=== PATIENT | female | born 1995 | race African-American/Black ===

== ENCOUNTER 2016-12-08 16:59 | Outpatient (CLI) | payer OTHER | END 2016-12-08 18:30 | disposition home or self-care (01) | DX: O26.892 Other specified pregnancy related conditions, second trimester (principal); R10.32 Left lower quadrant pain; O99.342 Other mental disorders complicating pregnancy, second trimester; F41.9 Anxiety disorder, unspecified; O99.012 Anemia complicating pregnancy, second trimester; D64.9 Anemia, unspecified; Z3A.23 23 weeks gestation of pregnancy ==

== ENCOUNTER 2017-01-19 01:46 | Outpatient (CLI) | payer OTHER | END 2017-01-19 06:40 | disposition home or self-care (01) | DX: O47.02 False labor before 37 completed weeks of gestation, second trimester (principal); Z3A.29 29 weeks gestation of pregnancy ==

== ENCOUNTER 2017-01-19 07:12 | Outpatient (CLI) | payer OTHER | END 2017-01-19 07:13 | disposition home or self-care (01) | DX: O09.93 Supervision of high risk pregnancy, unspecified, third trimester (principal) ==

== ENCOUNTER 2017-01-22 10:17 | Outpatient (CLI) | payer OTHER | END 2017-01-22 12:20 | disposition home or self-care (01) | DX: O47.03 False labor before 37 completed weeks of gestation, third trimester (principal); Z3A.29 29 weeks gestation of pregnancy ==

== ENCOUNTER 2017-03-14 09:00 | Outpatient (CLI) | payer OTHER ==
[2017-03-14] MEDS ORDERED: HYDROcod/ACETAM 5/325 MG TABLET PO PRN (11:17)
== END 2017-03-14 13:00 | disposition home or self-care (01) ==
DX: O26.833 Pregnancy related renal disease, third trimester (principal); N28.89 Other specified disorders of kidney and ureter; N13.30 Unspecified hydronephrosis; Z3A.37 37 weeks gestation of pregnancy
CPT/HCPCS: 76775; 81003; 99213; A9270

== ENCOUNTER 2018-09-11 16:21 | Emergency (ER) | payer OTHER ==
[2018-09-11] MEDS ORDERED: DEXAMETHASONE 10 MG/ML VIAL IVP STA (17:22)
[2018-09-11] MEDS ORDERED: SODIUM CHLORIDE 0.9% 1,000 ML IV ONE (17:22)
--- NOTE | 2018-09-11 17:25 | ED Physician Documentation ---
History of Present Illness - Stated complaint Stated Complaint: BODY ACHES/FEVER - Chief complaint Chief Complaint: General - History obtained from History obtained from: Patient, Family - History of Present Illness Timing: How many days ago (3) - Additonal information Additional information: 22-year-old previously well female who has had a 3-day history of fever aches nausea vomiting and diarrhea. She has a young daughter who attends daycare who was sick with similar symptoms for the past 2 weeks. The patient notes that she has not been able to keep much in way of fluids down and feels dehydrated. Review of Systems Constitutional: reports: Fever, Chills, Myalgias, Fatigue, Sweats Eyes: denies: Decreased vision Ears: denies: Ear pain Nose: reports: Rhinorrhea / runny nose, Congestion Throat: reports: Sore throat Cardiac: denies: Chest pain / pressure, Palpitations Respiratory: denies: Dyspnea, Cough GI: reports: Nausea, Vomiting, Diarrhea : denies: Dysuria, Frequency Skin: denies: Rash Musculoskeletal: denies: Neck pain, Back pain, Extremity pain Neurologic: reports: Generalized weakness. denies: Focal weakness, Numbness PD PAST MEDICAL HISTORY - Past Medical History Past Medical History: Yes Cardiovascular: Murmur Respiratory: Asthma Endocrine/Autoimmune: None GI: None SUBSTITUTE NURSE: Miscarriage(s) : None HEENT: None Psych: None Musculoskeletal: Scoliosis Derm: None - Past Surgical History Past Surgical History: Yes /SUBSTITUTE NURSE: Dilation and currettage - Present Medications Home Medications: Ambulatory Orders Medication Instructions Recorded Confirmed Azithromycin [Zithromax] 250 mg PO DAILY #6 tablet 09/11/18 Ondansetron Odt [Zofran] 4 mg TL Q6H PRN #10 tablet 09/11/18 RX: Albuterol Sulf [Ventolin Hfa 1 - 2 puffs INH Q4HR PRN #1 inhaler 09/11/18 Inhaler] - Allergies Allergies/Adverse Reactions: Allergies Allergy/AdvReac Type Severity Reaction Status Date / Time Penicillins Allergy Hives Verified 09/11/18 16:26 - Social History Does the pt smoke?: No Smoking Status: Never smoker Does the pt drink ETOH?: Yes ETOH Use: Liquor Does the pt have substance abuse?: No - Immunizations Immunizations are current?: Yes - POLST Patient has POLST: No PD ED PE NORMAL - Vitals Vital signs reviewed: Yes (tachy ) - General General: Alert and oriented X 3, No acute distress, Well developed/nourished - HEENT HEENT: Atraumatic, PERRL, EOMI, Other (inflamation and fluid behind the TM on the right with the left being clear ) - Neck Neck: Supple, no meningeal sign, No bony TTP - Cardiac Cardiac: No murmur, Other (tachy to 120 sitting up ) - Respiratory Respiratory: No respiratory distress, Other (poor air movement ) - Abdomen Abdomen: Soft, Other (epigastric tenderness to palpation ) - Back Back: No CVA TTP, No spinal TTP - Derm Derm: Normal color, Warm and dry, No rash - Extremities Extremities: No deformity, No edema - Neuro Neuro: Alert and oriented X 3, health advocate 2-12 intact, No motor deficit, No sensory deficit, Normal speech Eye Opening: Spontaneous Motor: Obeys Commands Verbal: Oriented GCS Score: 15 - Psych Psych: Normal mood, Normal affect Results - Vitals Vitals: Oxygen O2 Source Room air - Labs Labs: Laboratory Tests 09/11/18 09/11/18 09/11/18 17:30 17:30 19:06 WBC 4.5 L RBC 4.87 Hgb 13.0 Hct 39.4 MCV 80.9 L MCH 26.6 L MCHC 32.9 RDW 13.8 Plt Count 183 MPV 8.5 Neut # (Auto) 3.7 Lymph # (Auto) 0.5 L [place] # (Auto) 0.3 Eos # (Auto) 0.0 Baso # (Auto) 0.0 Absolute Nucleated RBC 0.00 Nucleated RBC % 0.0 Sodium 134 L Potassium 3.3 L Chloride 104 Carbon Dioxide 23 Anion Gap 7.0 BUN 9 Creatinine 0.7 Estimated GFR (MDRD) 128 Glucose 103 H Calcium 8.7 Total Bilirubin 0.5 AST 16 ALT 13 Alkaline Phosphatase 39 L Total Protein 7.2 Albumin 3.8 Globulin 3.4 Albumin/Globulin Ratio 1.1 Lipase 23 Urine Color YELLOW Urine Clarity CLEAR Urine pH 5.5 Ur Specific [place] >=1.030 H Urine Protein NEGATIVE Urine Glucose (UA) NEGATIVE Urine Ketones NEGATIVE Urine Occult Blood NEGATIVE Urine Nitrite NEGATIVE Urine Bilirubin NEGATIVE Urine Urobilinogen 0.2 (NORMAL) Ur Leukocyte Esterase NEGATIVE Ur Microscopic Review NOT INDICATED Urine Culture Comments NOT INDICATED Urine HCG, Qual NEGATIVE - Rads (name of study) 2 veiw chest Radiology: Prelim report reviewed (Impression: No acute radiographic pulmonary abnormalities.), EMP read indepedently, See rad report Procedures - IVC sono (time) 1720 Bedside IVC sono: IVC measures (cm) (1.21), IVC collapsed c insp (cm) (complete), Dehydration (est 1 liter deficit) PD MEDICAL DECISION MAKING - ED course Complexity details: reviewed results, re-evaluated patient, considered differential, d/w patient, d/w family ED course: 22 y/o female with fever, aches, vomiting and diarrhea for 3 days is found to be dehydrated on arrival to the ED and she has ROM on exam. She is administered IV saline and decadron. Departure - Departure Disposition: 01 Home, Self Care Clinical Impression: Dehydration, Gastroenteritis, Otitis media Condition: Stable Instructions: ED Dehydration, ED Otitis Media Acute Adult, ED Gastroenteritis Viral Follow-Up: SAAD BRADFORD [Primary Care Provider] - Prescriptions: RX: Albuterol Sulf [Ventolin Hfa Inhaler] 1 - 2 puffs INH Q4HR PRN #1 inhaler PRN Reason: Shortness Of Air/Wheezing Azithromycin [Zithromax] 250 mg PO DAILY #6 tablet Ondansetron Odt [Zofran] 4 mg TL Q6H PRN #10 tablet PRN Reason: Nausea / Vomiting Comments: Please return to the ED for worsening symptoms or any concerns Discharge Date/Time: 09/11/18 20:08
[2018-09-11 17:44] LABS: BASOPHILS % (AUTO) 0.5 %; EOSINOPHILS % (AUTO) 0.1 %; LYMPHOCYTES # (AUTO) 0.5 10^3/uL (1.5-3.5); LYMPHOCYTES % (AUTO) 11.1 %; MEAN CORPUSCULAR HEMOGLOBIN 26.6 pg (27.0-31.0); MEAN CORPUSCULAR HGB CONC 32.9 g/dL (32.0-36.0); MEAN CORPUSCULAR VOLUME 80.9 fL (81.0-99.0); MEAN PLATELET VOLUME 8.5 fL (7.9-10.8); MONOCYTES # (AUTO) 0.3 10^3/uL (0.0-1.0); MONOCYTES % (AUTO) 6.2 %; NEUTROPHILS # (AUTO) 3.7 10^3/uL (1.5-6.6); NEUTROPHILS % (AUTO) 82.1 %; PLT - PLATELET COUNT 183 10^3/uL (130-450); RED BLOOD COUNT 4.87 10^6/uL (4.20-5.40); RED CELL DISTRIBUTION WIDTH 13.8 % (12.0-15.0); WHITE BLOOD COUNT 4.5 x10^3/uL (4.8-10.8)
[2018-09-11 17:59] LABS: ALBUMIN 3.8 g/dL (3.2-5.5); ALBUMIN/GLOBULIN RATIO 1.1 (1.0-2.2); BILIRUBIN,TOTAL 0.5 mg/dL (0.2-1.0); CALCIUM 8.7 mg/dL (8.5-10.3); CREATININE 0.7 mg/dL (0.4-1.0); TOTAL PROTEIN 7.2 g/dL (6.7-8.2)
--- NOTE | 2018-09-11 18:02 | XRAY Report ---
Reason: fever decreased air movement Procedure Date: 09/11/2018 Accession Number: [id number] / [id number] Procedure: XR - Chest 2 View X-Ray CPT Code: 90294 FULL RESULT: EXAM: CHEST RADIOGRAPHY EXAM DATE: 09/11/2018 05:47 PM. CLINICAL HISTORY: Fever decreased air movement. COMPARISON: None. TECHNIQUE: 2 views. FINDINGS: Lungs/Pleura: No dense consolidation. No large effusion or pneumothorax. No pulmonary edema. Mediastinum: Heart and mediastinal contours are unremarkable. Other: None. IMPRESSION: No acute radiographic pulmonary abnormalities. RADIA
[2018-09-11] MEDS ORDERED: POTASSIUM BICARB 25 MEQ TABLET PO STA (18:14)
[2018-09-11 19:17] LABS: BILIRUBIN,URINE NEGATIVE (NEGATIVE); GLUCOSE, URINE (UA) NEGATIVE (NEGATIVE); KETONES,URINE (UA) NEGATIVE (NEGATIVE); LEUKOCYTE ESTERASE, URINE NEGATIVE (NEGATIVE); NITRITE,URINE NEGATIVE (NEGATIVE); OCCULT BLOOD,URINE NEGATIVE (NEGATIVE); PH,URINE 5.5 PH (5.0-7.5); PROTEIN,URINE NEGATIVE (NEGATIVE); UROBILINOGEN,URINE 0.2 (NORMAL) E.U./dL (NORMAL)
[2018-09-11 19:27] LABS: CLARITY,URINE CLEAR (CLEAR); HCG UR QUAL NEGATIVE
--- NOTE | 2018-09-11 19:31 | ED Physician Documentation ---
ED Addendum - Addendum Addendum: The case was discussed Was signed out to me by the off going emergency physician, I was asked to follow-up on the results of the urinalysis and discharge the patient home. On reevaluation the patient is resting comfortably and appear to be in no significant distress. I reviewed the labs and there is no findings that would necessitate admission to the hospital Or urgent transfer. The prior physician felt that the patient had an Acute otitis media the patient was prescribed antibiotics.
[2018-09-11 19:39] VITALS: BP 117/76
== END 2018-09-11 20:08 | disposition home or self-care (01) ==
LOC: ED 16:21
DX: E86.0 Dehydration (principal); K52.9 Noninfective gastroenteritis and colitis, unspecified; H66.91 Otitis media, unspecified, right ear
CPT/HCPCS: 36415; 71046; 80053; 81003; 81025; 83690; 85025; 96361; 96374; 99283; A9270; 81001; 87086

== ENCOUNTER 2018-10-14 06:46 | Emergency (ER) | payer OTHER ==
[2018-10-14 06:54] VITALS: BP 128/66
--- NOTE | 2018-10-14 07:24 | ED Physician Documentation ---
PD HPI FEMALE - Stated complaint Stated Complaint: CRAMPING/?? - Chief complaint Chief Complaint: Abd Pain - History obtained from History obtained from: Patient - History of Present Illness Timing - onset: Yesterday Timing - duration: Days (1) Timing - details: Abrupt onset, Still present Associated symptoms: Pelvic pain (bladder and LLQ area. with some cramping pains and vaginal bleeding, has used 1-2 pads er hour initially, tapered today.). No: Fever, Abdominal pain Contributing factors: (she is 1 weeks late on her period and is concerned she might be .). No: control, Exposed to STD OB-[employer] History: G (4), P (1), Miscarriage(s) (3) Similar symptoms before: Diagnosis (with prior miscarriages) Recently seen: Not recently seen Review of Systems Constitutional: denies: Fever, Chills Nose: denies: Rhinorrhea / runny nose, Congestion Throat: denies: Sore throat Respiratory: denies: Cough GI: reports: Abdominal Pain. denies: Nausea, Vomiting, Diarrhea : reports: Vaginal bleeding, Missed period (1 week late). 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 HEENT: None Psych: None Musculoskeletal: Scoliosis Derm: None - Past Surgical History Past Surgical History: Yes /FIELD [employer] HELPER: Dilation and currettage - Present Medications Home Medications: Ambulatory Orders Medication Instructions Recorded Confirmed Albuterol Sulf [Ventolin Hfa 1 - 2 puffs INH Q4HR PRN #1 inhaler 09/11/18 Inhaler] Naproxen 375 mg PO BID #20 tablet 10/14/18 Ondansetron Odt [Zofran] 4 mg TL Q6H PRN #10 tablet 10/14/18 - Allergies Allergies/Adverse Reactions: Allergies Allergy/AdvReac Type Severity Reaction Status Date / Time Penicillins Allergy Hives Verified 10/14/18 06:54 - Social History Does the pt smoke?: No Smoking Status: Never smoker Does the pt drink ETOH?: Yes Does the pt have substance abuse?: No - Immunizations Immunizations are current?: Yes - POLST Patient has POLST: No PD ED PE NORMAL - Vitals Vital signs reviewed: Yes - General General: Alert and oriented X 3, No acute distress, Well developed/nourished - HEENT HEENT: Pharynx benign - Neck Neck: Supple, no meningeal sign, No adenopathy - Cardiac Cardiac: RRR, No murmur - Respiratory Respiratory: Clear bilaterally - Abdomen Abdomen: Normal bowel sounds, Soft, Non distended, No organomegaly, Other (mildly tender suprapubic and LLQ area. No guarding nor percussion tenderness. ) - Back Back: No CVA TTP - Derm Derm: Normal color, Warm and dry - Extremities Extremities: No deformity, No tenderness to palpate - Neuro Neuro: Alert and oriented X 3, No motor deficit, Normal speech Results - Vitals Vitals: Vital Signs - 24 hr 10/14/18 06:50 Temperature 37.0 C Heart Rate 81 Respiratory 16 Rate Blood Pressure 128/66 O2 Saturation 100 Oxygen O2 Source Room air - Labs Labs: Laboratory Tests 10/14/18 10/14/18 10/14/18 07:20 07:55 07:55 WBC 7.0 RBC 4.73 Hgb 12.6 Hct 38.6 MCV 81.7 MCH 26.6 L MCHC 32.5 RDW 14.3 Plt Count 262 MPV 7.6 L Neut # (Auto) 4.8 Lymph # (Auto) 1.6 [place] # (Auto) 0.5 Eos # (Auto) 0.1 Baso # (Auto) 0.1 Absolute Nucleated RBC 0.00 Nucleated RBC % 0.0 HCG, Quant 550.86 Urine Color YELLOW Urine Clarity CLEAR Urine pH 5.5 Ur Specific [place] >=1.030 H Urine Protein NEGATIVE Urine Glucose (UA) NEGATIVE Urine Ketones NEGATIVE Urine Occult Blood NEGATIVE Urine Nitrite NEGATIVE Urine Bilirubin NEGATIVE Urine Urobilinogen 0.2 (NORMAL) Ur Leukocyte Esterase NEGATIVE Urine RBC 0-5 Urine WBC 0-3 Ur Squamous Epith Cells FEW Squamous Urine Bacteria Few Urine Mucus Few Strands Urine Sperm PRESENT Urine Culture Comments NOT INDICATED Urine HCG, Qual POSITIVE Blood Type 10/14/18 07:55 WBC RBC Hgb Hct MCV MCH MCHC RDW Plt Count MPV Neut # (Auto) Lymph # (Auto) [place] # (Auto) Eos # (Auto) Baso # (Auto) Absolute Nucleated RBC Nucleated RBC % HCG, Quant Urine Color Urine Clarity Urine pH Ur Specific [place] Urine Protein Urine Glucose (UA) Urine Ketones Urine Occult Blood Urine Nitrite Urine Bilirubin Urine Urobilinogen Ur Leukocyte Esterase Urine RBC Urine WBC Ur Squamous Epith Cells Urine Bacteria Urine Mucus Urine Sperm Urine Culture Comments Urine HCG, Qual Blood Type A POSITIVE - Rads (name of study) pelvic U/S Radiology: Prelim report reviewed, Discussed with rads (no IUP and normal uterus. Left ovarian cystic lesions c/w corpeus luteum cyst. Suggests repeat quant HCG and U/S) PD MEDICAL DECISION MAKING - ED course Complexity details: reviewed results (Ultrasound shows no visible intrauterine . There is a cyst on the left ovary is luteum cyst according to the radiologist verbally. Her quantitative hCG is low enough that the regnancy may not be discernible. At tried to call with [facility] [employer] but they did not return call. I talked with Dr. Neville our [employer] on-call and reviewed the findings. He said she would need to have a repeat quantitative level in 2-3 days and to be seen in the office for follow-up.. She should call the [facility] clinic tomorrow or later today for an appointment in a few days.), considered differential (concern for miscarriage versus ectopic versus early and other cause such as cyst. ), d/w patient Departure - Departure Disposition: 01 Home, Self Care Clinical Impression: Early stage of , Vaginal bleeding in Ovarian cyst Qualifiers: Laterality: left Qualified Code(s): N83.202 - Unspecified ovarian cyst, left side Condition: Stable Record reviewed to determine appropriate education?: Yes Instructions: ED Abdominal Pain Rule Out Ectopic Follow-Up: [facility] [Provider Group] Oscar Neville MD [Provider Admit Priv/Credential] - Prescriptions: Naproxen 375 mg PO BID #20 tablet Ondansetron Odt [Zofran] 4 mg TL Q6H PRN #10 tablet PRN Reason: Nausea / Vomiting Comments: The ultrasound did not show any intrauterine . This may have the possibilities of too early to be visible on ultrasound or having miscarried or tubal . You should recheck with [employer] in 2-3 days. They will want to do a repeat blood test for your hCG. Today was 550. Whether he goes up or down would distinguish whether there is still a and if so may need a repeat ultrasound to verify location. Return to the ER sooner if increasing pain or bleeding. You can use ondansetron if needed for nausea. Naproxen can be used for pain and is okay in early . He can use Tylenol if needed for pain. [place] [employer] [facility] [place] community. Your primary care could also order the blood test if needed. Discharge Date/Time: 10/14/18 12:35
[2018-10-14 07:33] LABS: BILIRUBIN,URINE NEGATIVE (NEGATIVE); GLUCOSE, URINE (UA) NEGATIVE (NEGATIVE); KETONES,URINE (UA) NEGATIVE (NEGATIVE); LEUKOCYTE ESTERASE, URINE NEGATIVE (NEGATIVE); NITRITE,URINE NEGATIVE (NEGATIVE); OCCULT BLOOD,URINE NEGATIVE (NEGATIVE); PH,URINE 5.5 PH (5.0-7.5); PROTEIN,URINE NEGATIVE (NEGATIVE); UROBILINOGEN,URINE 0.2 (NORMAL) E.U./dL (NORMAL)
[2018-10-14 07:36] LABS: CLARITY,URINE CLEAR (CLEAR); HCG UR QUAL POSITIVE
[2018-10-14 07:56] LABS: BACTERIA,URINE Few /HPF (None Seen); MUCUS,URINE Few Strands; RBC,URINE 0-5 /HPF (0-5); SPERM,URINE PRESENT; SQUAMOUS EPITHELIAL CELL,UR FEW Squamous (<= Few)
[2018-10-14 08:05] LABS: BASOPHILS # (AUTO) 0.1 10^3/uL (0.0-0.1); BASOPHILS % (AUTO) 0.7 %; EOSINOPHILS # (AUTO) 0.1 10^3/uL (0.0-0.7); EOSINOPHILS % (AUTO) 1.2 %; HGB - HEMOGLOBIN 12.6 g/dL (12.0-16.0); LYMPHOCYTES # (AUTO) 1.6 10^3/uL (1.5-3.5); LYMPHOCYTES % (AUTO) 22.8 %; MEAN CORPUSCULAR HEMOGLOBIN 26.6 pg (27.0-31.0); MEAN CORPUSCULAR HGB CONC 32.5 g/dL (32.0-36.0); MEAN CORPUSCULAR VOLUME 81.7 fL (81.0-99.0); MEAN PLATELET VOLUME 7.6 fL (7.9-10.8); MONOCYTES # (AUTO) 0.5 10^3/uL (0.0-1.0); MONOCYTES % (AUTO) 6.8 %; NEUTROPHILS # (AUTO) 4.8 10^3/uL (1.5-6.6); NEUTROPHILS % (AUTO) 68.5 %; PLT - PLATELET COUNT 262 10^3/uL (130-450); RED BLOOD COUNT 4.73 10^6/uL (4.20-5.40); RED CELL DISTRIBUTION WIDTH 14.3 % (12.0-15.0)
--- NOTE | 2018-10-14 10:39 | Ultrasound Report ---
Reason: early and cramps/bleeding Procedure Date: 10/14/2018 Accession Number: [id number] / [id number] Procedure: US - OB First Trimester CPT Code: FULL RESULT: EXAM: FIRST TRIMESTER OBSTETRIC ULTRASOUND (Less than 11 weeks) EXAM DATE: 10/14/2018 10:04 AM. CLINICAL HISTORY: Early and cramps/bleeding. LMP: 09/13/2018. Beta hCG 550.9. COMPARISONS: OB FIRST TRIMESTER 08/08/2016 10:15 PM. TECHNIQUE: Transabdominal and transvaginal ultrasound examination with static image documentation. CLINICAL DATES: EGA 4 weeks 3 days with DELPHINE 06/20/2019 based on last menstrual period. ASSESSMENT: Gestational Sac: Single intrauterine. An intrauterine gestational sac is not identified. No cardiac activity is identified. Early placenta: Not applicable at this gestational age. Other: No perigestational fluid collection demonstrated. MATERNAL STRUCTURES: Uterus: Retroverted. The endometrium is homogenously echogenic and thick in keeping with a hormonally supplied uterus, 13 mm. Cervix: Closed. Right Ovary/Adnexa: The ovary measures 2.8 x 1.3 x 1.5 cm, volume 2.9 cc. Unremarkable. Left Ovary/Adnexa: The ovary measures 3.4 x 2.4 x 2.0 cm, volume 8.5 cc. A cystic structure measuring 2.2 x 1.9 x 1.9 cm is most compatible with a corpus luteum. Free Fluid: There is a small amount of free pelvic fluid. Other: No definite adnexal findings to suggest ectopic gestation are identified at this time. IMPRESSION: Thickened endometrium with no definite intrauterine gestation identified. In the setting of clinical vaginal bleeding and cramping, this is concerning for the possibility of spontaneous in progress. Recommend close clinical follow-up and correlation with serial beta hCG and follow-up ultrasound if indicated. RADIA CRITICAL RESULT: The findings were discussed with Dr. Orozco on 10/14/2018 at 10:20 AM.
== END 2018-10-14 12:35 | disposition home or self-care (01) ==
LOC: ED 06:46
DX: O20.9 Hemorrhage in early pregnancy, unspecified (principal); O34.81 Maternal care for other abnormalities of pelvic organs, first trimester; N83.202 Unspecified ovarian cyst, left side; Z3A.01 Less than 8 weeks gestation of pregnancy
CPT/HCPCS: 76801; 76817; 81001; 81025; 84702; 85025; 86900; 86901; 87086; 99283

== ENCOUNTER 2019-03-17 19:28 | Outpatient (CLI) | payer OTHER ==
[2019-03-17] MEDS ORDERED: LACTATED RINGERS 1,000 ML IV ONE (20:49)
[2019-03-17] MEDS ORDERED: SODIUM CHLORIDE FLUSH 0.9% 10 ML SYRINGE ONE (21:05)
[2019-03-17 21:30] LABS: BILIRUBIN,URINE NEGATIVE (NEGATIVE); GLUCOSE, URINE (UA) NEGATIVE (NEGATIVE); KETONES,URINE (UA) NEGATIVE (NEGATIVE); LEUKOCYTE ESTERASE, URINE NEGATIVE (NEGATIVE); NITRITE,URINE NEGATIVE (NEGATIVE); OCCULT BLOOD,URINE NEGATIVE (NEGATIVE); PROTEIN,URINE NEGATIVE (NEGATIVE); UROBILINOGEN,URINE 1 (NORMAL) E.U./dL (NORMAL)
[2019-03-17 21:33] LABS: CLARITY,URINE CLEAR (CLEAR)
--- NOTE | 2019-03-17 22:28 | Ultrasound Report ---
Reason: 26 weeks , lower abd. pain Procedure Date: 03/17/2019 Accession Number: [id number] / [id number] Procedure: US - OB Transvaginal CPT Code: FULL RESULT: EXAM: LIMITED OBSTETRICAL ULTRASOUND EXAM DATE: 03/17/2019 09:48 PM. CLINICAL HISTORY: 26 weeks , lower abd. pain. COMPARISON: OB TRANSVAGINAL 01/19/2017 7:38 AM. TECHNIQUE: Real-time sonographic evaluation of the fetus performed by the electrical assistant. Multiple commercial sales representative static images were saved for review. Additional transvaginal imaging to more accurately evaluate cervical length/placental position/etc. DATING: Established EGA 26 weeks 0 days with DELPHINE 06/23/2019. GENERAL EVALUATION Burger . Cardiac activity: 154 bpm. movement: Visualized. Presentation: Cephalic. MATERNAL STRUCTURES The cervix measures 3 cm transvaginally, and is closed. IMPRESSION: 1. Burger live intrauterine with gestational age 26 weeks 0 days based on established DELPHINE. 2. 3 cm cervix, which is closed. RADIA
[2019-03-17 23:06] VITALS: BP 118/71
== END 2019-03-17 22:51 | disposition home or self-care (01) ==
LOC: WFO 19:28 → FBP 19:32 → WFO 22:51
PROVIDERS: ATTEND Obstetrics & Gynecology
DX: O60.02 Preterm labor without delivery, second trimester (principal); Z3A.25 25 weeks gestation of pregnancy
CPT/HCPCS: 76817; 81001; 81003; 82731; 87210; 87491; 87591; 99214

== ENCOUNTER 2019-04-12 19:42 | Outpatient (CLI) | payer OTHER ==
[2019-04-12] MEDS ORDERED: ACETAMINOPHEN 500 MG TABLET PO PRN (20:34)
[2019-04-12 21:14] LABS: BASOPHILS % (AUTO) 0.5 %; EOSINOPHILS # (AUTO) 0.1 10^3/uL (0.0-0.7); EOSINOPHILS % (AUTO) 1.6 %; HGB - HEMOGLOBIN 10.1 g/dL (12.0-16.0); LYMPHOCYTES # (AUTO) 1.7 10^3/uL (1.5-3.5); LYMPHOCYTES % (AUTO) 20.8 %; MEAN CORPUSCULAR HEMOGLOBIN 24.4 pg (27.0-31.0); MEAN CORPUSCULAR HGB CONC 31.2 g/dL (32.0-36.0); MEAN CORPUSCULAR VOLUME 78.1 fL (81.0-99.0); MEAN PLATELET VOLUME 7.9 fL (7.9-10.8); MONOCYTES # (AUTO) 0.6 10^3/uL (0.0-1.0); MONOCYTES % (AUTO) 7.6 %; NEUTROPHILS # (AUTO) 5.6 10^3/uL (1.5-6.6); NEUTROPHILS % (AUTO) 69.5 %; PLT - PLATELET COUNT 193 10^3/uL (130-450); RED BLOOD COUNT 4.13 10^6/uL (4.20-5.40); RED CELL DISTRIBUTION WIDTH 15.9 % (12.0-15.0); WHITE BLOOD COUNT 8.1 x10^3/uL (4.8-10.8)
[2019-04-12 23:06] VITALS: BP 121/69
--- NOTE | 2019-04-16 09:50 | PROVIDER PROGRESS NOTE ---
- HPI Chief Complaint: Fall Current : Current 2 Para 1 Vital Signs Temperature 97.3 F L 04/12/19 19:49 Heart Rate 92 04/12/19 19:49 Respiratory Rate 16 04/12/19 19:49 Blood Pressure 133/70 H 04/12/19 19:49 O2 Saturation 100 04/12/19 19:49 Temperature 97.7 F 04/12/19 23:05 Heart Rate 70 04/12/19 23:05 Respiratory Rate 20 04/12/19 23:05 Blood Pressure 121/69 04/12/19 23:05 O2 Saturation 100 04/12/19 23:05 - Exam Abd soft, nt/nd. No bruising. - Procedures OB Procedure Performed: NST Diagnosis/Indication for NST: Other (trauma/fall) Findings: Category 1; toco neg - Plan Plan: S: slipped out of the bathtub, fell forward, hit her bump on the counter edge and was able to brace with her hand at the same time to take some of the force. Since then has had some cramping. No VB. No LOF. Is feeling FM. O: AVSS Alert, NAD Abd soft, nt/nd NST category 1 [place] rare UC Rh + A/P: at 29w6d with abd trauma, low-velocity mechanism of injury, no bruising, Rh +. Pt was observed for 4h post event with continuous monitoring. By the end of this time she had minimal abd pain. One dose of nifedipine was given to reduce her sensation of UC. Dischrged home with abruption and PTL precautions. Follow up at regularly scheduled OB visit.
== END 2019-04-12 23:15 | disposition home or self-care (01) ==
LOC: WFO 19:42 → FBP 19:44 → WFO 23:15
PROVIDERS: ATTEND Obstetrics & Gynecology
DX: O9A.213 Injury, poisoning and certain other consequences of external causes complicating pregnancy, third trimester (principal); S39.91XA Unspecified injury of abdomen, initial encounter; Z3A.29 29 weeks gestation of pregnancy; W01.198A Fall on same level from slipping, tripping and stumbling with subsequent striking against other object, initial encounter; Y93.E1 Activity, personal bathing and showering; Y92.002 Bathroom of unspecified non-institutional (private) residence as the place of occurrence of the external cause
CPT/HCPCS: 36415; 85025; 99213; A9270

== ENCOUNTER 2019-06-14 00:38 | Outpatient (CLI) | payer OTHER ==
[2019-06-14 01:26] VITALS: BP 133/73
--- NOTE | 2019-06-14 08:31 | PROVIDER PROGRESS NOTE ---
- HPI Current : Current EDU 06/23/19 Gestation 38 Weeks and 5 Days 5 Para 1 Vital Signs Temperature 36.9 C 06/14/19 00:50 Heart Rate 106 H 06/14/19 00:50 Respiratory Rate 20 06/14/19 00:50 Blood Pressure 133/73 H 06/14/19 00:50 O2 Saturation 100 06/14/19 00:50 Temperature 36.9 C 06/14/19 00:50 Heart Rate 106 H 06/14/19 00:50 Respiratory Rate 20 06/14/19 00:50 Blood Pressure 133/73 H 06/14/19 00:50 O2 Saturation 100 06/14/19 00:50 The patient came in complaining of contractions.She denied any vaginal bleeding or fluid. She is [facility] at [facility] for her . - Procedures Findings: Nursing exam: Cervix is possibly 2 cm that is very high and thick and posterior. Only occasional contractions are noted on the monitor. - Plan Plan: Impression: 1 intrauterine at 38 weeks and 5 days 2. False labor Plan: The patient was [place] in [place] [facility] for[place] an [place]. There is no change noted in her cervix exam.The contractions do seem to be somewhat erratic. The patient is therefore going to be discharged home.She will follow-up with her OB for at her regular visit. She will come back for an evaluation to the OB department if she feels labor has ensued.
== END 2019-06-14 02:50 | disposition home or self-care (01) ==
LOC: WFO 00:38 → FBP 00:40 → WFO 02:50
PROVIDERS: ATTEND Obstetrics & Gynecology
DX: O47.1 False labor at or after 37 completed weeks of gestation (principal); Z3A.38 38 weeks gestation of pregnancy
CPT/HCPCS: 99213

== ENCOUNTER 2019-10-14 19:41 | Emergency (ER) | payer OTHER ==
[2019-10-14] MEDS ORDERED: diazePAM 5 MG TABLET PO STA (21:17)
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
[2019-10-14 21:25] VITALS: BP 121/58
== END 2019-10-14 21:25 | disposition home or self-care (01) ==
LOC: ED 19:41
DX: S13.4XXA Sprain of ligaments of cervical spine, initial encounter (principal); V43.52XA Car driver injured in collision with other type car in traffic accident, initial encounter; Y92.481 Parking lot as the place of occurrence of the external cause
CPT/HCPCS: 99282; 99284; A9270

== ENCOUNTER 2020-03-02 14:42 | Emergency (ER) | payer OTHER ==
[2020-03-02 14:51] VITALS: BP 130/75
--- NOTE | 2020-03-02 14:52 | ED Physician Documentation ---
PD HPI FEMALE - Stated complaint Stated Complaint: FEMALE - Chief complaint Chief Complaint: UTI - History obtained from History obtained from: Patient - History of Present Illness Timing - onset: Yesterday Timing - duration: Days (1) Timing - details: Abrupt onset Associated symptoms: Dysuria, Hematuria. No: Fever, Abdominal pain, Vaginal pain, Vaginal bleeding Contributing factors: Sexually active. No: (She is not known but states she is 1 week late on her period) OB-PATENT COUNSEL History: G (2), P (2) Similar symptoms before: Has not had sx before Recently seen: Not recently seen Review of Systems Constitutional: denies: Fever, Chills, Myalgias GI: reports: Nausea. denies: Abdominal Pain, Vomiting, Diarrhea Musculoskeletal: reports: Back pain (mild aching in flank yesterday) PD PAST MEDICAL HISTORY - Past Medical History Cardiovascular: Murmur Respiratory: Asthma Neuro: None Endocrine/Autoimmune: None GI: None PATENT COUNSEL: Miscarriage(s) : None HEENT: None Psych: None Musculoskeletal: Scoliosis Derm: None - Past Surgical History Past Surgical History: Yes /PATENT COUNSEL: Dilation and currettage - Present Medications Home Medications: Ambulatory Orders Medication Instructions Recorded Confirmed Albuterol Sulf [Ventolin Hfa 1 - 2 puffs INH Q4HR PRN #1 inhaler 09/11/18 Inhaler] Naproxen 375 mg PO BID #20 tablet 10/14/18 Ondansetron Odt [Zofran] 4 mg TL Q6H PRN #10 tablet 10/14/18 diazePAM [Valium] 5 mg PO BID #10 tablet 10/14/19 Cephalexin [Keflex] 500 mg PO TID #20 capsule 03/02/20 Ibuprofen [Motrin] 600 mg PO TID PRN #20 tab 03/02/20 Phenazopyridine HCl [Pyridium] 200 mg PO TID PRN #9 tablet 03/02/20 - Allergies Allergies/Adverse Reactions: Allergies Allergy/AdvReac Type Severity Reaction Status Date / Time Penicillins Allergy Hives Verified 03/02/20 14:48 - Social History Does the pt smoke?: No Smoking Status: Never smoker Does the pt drink ETOH?: Yes Does the pt have substance abuse?: No - Immunizations Immunizations are current?: Yes - POLST Patient has POLST: No PD ED PE NORMAL - Vitals Vital signs reviewed: Yes - General General: Alert and oriented X 3, No acute distress, Well developed/nourished - Abdomen Abdomen: Soft, Non tender - Back Back: No CVA TTP - Derm Derm: Normal color Results - Vitals Vitals: Vital Signs - 24 hr 03/02/20 14:48 Temperature 37.3 C Heart Rate 77 Respiratory 15 Rate Blood Pressure 130/75 O2 Saturation 99 Oxygen O2 Source Room air - Labs Labs: Laboratory Tests 03/02/20 03/02/20 15:00 15:00 Urine Color ORANGE Urine Clarity HAZY Urine pH 6.5 Ur Specific [place] 1.020 1.020 Urine Protein Urine Glucose (UA) Urine Ketones Urine Occult Blood MODERATE H Urine Nitrite POSITIVE H Urine Bilirubin NEGATIVE Urine Urobilinogen Ur Leukocyte Esterase MODERATE H Urine RBC 11-25 H Urine WBC >25 H Ur Squamous Epith Cells NONE SEEN Urine Bacteria Few Ur Microscopic Review INDICATED Urine Culture Comments INDICATED Urine HCG, Qual POSITIVE PD MEDICAL DECISION MAKING - ED course Complexity details: considered differential (Symptoms consistent with UTI and her urine is consistent with that. She was given a dose of Bactrim initially. Her urine was resulted as positive so we will change her prescription to cephalexin. Continue Pyridium and Tylenol or ibuprofen. She is not having vaginal bleeding or abdominal pains or tenderness referrable to early .), d/w patient Departure - Departure Disposition: 01 Home, Self Care Clinical Impression: test positive Urinary tract infection Qualifiers: Urinary tract infection type: acute cystitis Hematuria presence: with hematuria Qualified Code(s): N30.01 - Acute cystitis with hematuria Condition: Stable Record reviewed to determine appropriate education?: Yes Instructions: ED UTI Cystitis Female Follow-Up: ADRIENNE SCHMID MD [Primary Care Provider] - Prescriptions: Cephalexin [Keflex] 500 mg PO TID #20 capsule Ibuprofen [Motrin] 600 mg PO TID PRN #20 tab PRN Reason: Pain Phenazopyridine HCl [Pyridium] 200 mg PO TID PRN #9 tablet PRN Reason: dysuria Comments: Your urine sample shows and infection which is consistent with your symptoms. I would anticipate improvement over the next 2 to 3 days with treatment. Stay well-hydrated. Cephalexin antibiotic three times daily for a week. Pyridium every 8 hours if needed for urinary discomfort. Also take ibuprofen 3 times a day for the next few days and then as needed for pains and fevers. Recheck if not improving over the next several days and return if increasing symptoms, in particular back pain fevers vomiting or other concerns. Your test is positive. Follow-up with your primary care regarding that and call for an appointment. Discharge Date/Time: 03/02/20 16:02
[2020-03-02 15:20] LABS: BILIRUBIN,URINE NEGATIVE (NEGATIVE); LEUKOCYTE ESTERASE, URINE MODERATE (NEGATIVE); NITRITE,URINE POSITIVE (NEGATIVE); OCCULT BLOOD,URINE MODERATE (NEGATIVE); PH,URINE 6.5 PH (5.0-7.5)
[2020-03-02 15:23] LABS: CLARITY,URINE HAZY (CLEAR)
[2020-03-02 15:25] LABS: HCG UR QUAL POSITIVE
[2020-03-02 15:26] LABS: BACTERIA,URINE Few /HPF (None Seen); SQUAMOUS EPITHELIAL CELL,UR NONE SEEN (<= Few)
[2020-03-02] MEDS ORDERED: IBUPROFEN 600 MG TABLET PO STA (15:30)
[2020-03-02] MEDS ORDERED: PHENAZOPYRIDINE 100 MG TABLET PO STA (15:30)
[2020-03-02] MEDS ORDERED: SULFAMETH/TRIMETH DS 800/160 MG TABLET PO STA (15:30)
== END 2020-03-02 16:02 | disposition home or self-care (01) ==
LOC: ED 14:42
DX: O99.89 Other specified diseases and conditions complicating pregnancy, childbirth and the puerperium (principal); N30.01 Acute cystitis with hematuria; Z3A.00 Weeks of gestation of pregnancy not specified
CPT/HCPCS: 81001; 81025; 87086; 87181; 99283; A9270; 81003